=== PATIENT | male | born 1960 | race Caucasian/White ===

== ENCOUNTER 2018-12-09 05:14 | Observation (INO) | payer OTHER ==
[2018-12-09] MEDS ORDERED: Aspirin 81 mg CHEW TAB* 81 MG TAB.CHEW PO ONE (05:41)
[2018-12-09] MEDS ORDERED: Morphine VIAL* 10 MG/ML 1 ML VIAL IV ONE (05:41)
[2018-12-09] MEDS ORDERED: Nitroglycerin TAB 0.4 MG* 0.4 MG TAB SL ONE ×2 (05:42→11:30)
--- NOTE | 2018-12-09 05:42 | ED ---
HPI Chest Pain - HPI Summary HPI Summary: A 58 y/o M presents to ED with c/o constant L-anterior CP onset three days ago from this date. He says the pain has worsened over the course of the weekend. When he woke up this morning to use the bathroom, he got up and walked to the bathroom and felt the pain was sharper. He denies n/v, SOB, dizziness/ lightheadedness and diaphoresis. Aggravating factors: belching. He has had similar CP previously, he's unsure how long ago but at most a month, which lasted 30 minutes but spontaneously resolved. He is a non-smoker. Denies cardiac hx, but he does have polycystic liver disease. Patient has not eaten this morning and has not taken any medication for the pain. - History of Current Complaint Chief Complaint: EDChestPainROMI Hx Obtained From: Patient Onset/Duration: Started Days Ago, Atraumatic, Still Present Timing: Constant Initial Severity: Mild Current Severity: Moderate Pain Intensity: 5 Pain Scale Used: 0-10 Numeric Chest Pain Location: Left Anterior Character: Sharp/Stabbing Associated Signs and Symptoms: Negative: Dizziness, Shortness of Breath, Lightheadedness, Nausea, Vomiting, Other: - neg: diaphoresis - Allergy/Home Medications Allergies/Adverse Reactions: Allergies Allergy/AdvReac Type Severity Reaction Status Date / Time No Known Allergies Allergy Verified 12/09/18 05:20 Home Medications: Home Medications NK [No Home Medications Reported] 12/09/18 [History Confirmed 12/09/18] PMH/Surg Hx/FS Hx/Imm Hx Previously Healthy: No Endocrine/Hematology History: Denies: Hx Diabetes Cardiovascular History: Denies: Hx Hypertension, Hx Pacemaker/ICD GI History: Reports: Other GI Disorders - POLYCYSTIC LIVER History: Denies: Hx Renal Disease Sensory History: Denies: Hx Hearing Aid Psychiatric History: Denies: Hx Panic Disorder - Surgical History Surgery Procedure, Year, and Place: APPENDECTOMY Infectious Disease History: No Infectious Disease History: Denies: Traveled Outside the [place] in Last 30 Days - Family History Known Family History: Positive: Other - [place] - Social History Occupation: Employed Full-time Lives: Alone Alcohol Use: Occasionally Hx Substance Use: No Substance Use Type: Reports: None Hx Tobacco Use: No Smoking Status (MU): Never Smoked Tobacco Review of Systems Negative: Skin Diaphoresis Positive: Chest Pain Negative: Shortness Of Breath Negative: Vomiting, Nausea Neurological: Other - neg: dizziness, lightheadedness All Other Systems Reviewed And Are Negative: Yes Physical Exam - Summary Physical Exam Summary: Appearance: Well-appearing, Well-nourished, lying in bed comfortably Skin: Warm, dry, no obvious rash Eyes: sclera anicteric, no conjunctival pallor ENT: mucous membranes moist, pharynx appears normal Neck: Supple, nontender Respiratory: Clear to auscultation, no signs of respiratory distress Cardiovascular: Normal S1, S2. No murmurs. Normal distal pulses in tibial and radial bilaterally. Abdomen: Soft, nontender, normal active bowel sounds present Musculoskeletal: Normal, Strength/ROM Intact Neurological: A&Ox3, awake and alert, mentation is normal, speech is fluent and appropriate Psychiatric: affect is normal, does not appear anxious or depressed Triage Information Reviewed: Yes Vital Signs On Initial Exam: Initial Vitals Temp Pulse Resp BP Pulse Ox 97.9 F 60 16 132/61 99 12/09/18 05:18 12/09/18 05:18 12/09/18 05:18 12/09/18 05:18 12/09/18 05:18 Vital Signs Reviewed: Yes Diagnostics - Vital Signs Vital Signs Temp Pulse Resp BP Pulse Ox 12/09/18 05:18 97.9 F 60 16 132/61 99 - Laboratory Result Diagrams: 12/09/18 05:49 12/09/18 05:49 Lab Statement: Any lab studies that have been ordered have been reviewed, and results considered in the medical decision making process. - Radiology CXR Radiology Interpretation Completed By: ED Physician Summary of Radiographic Findings: No acute process. - EKG 0528 Cardiac Rate: Bradycardia - 53 bpm EKG Rhythm: Sinus Bradycardia Summary of EKG Findings: ST elevation vs early repolarization in anterior leads Chest Pain Course/Dx - Course Course Of Treatment: Pt is a 58 y/o M presenting with constant L-anterior CP onset three days ago from this date. He says the pain has worsened over the course of the weekend. When he woke up this morning to use the bathroom, he got up and walked to the bathroom and felt the pain was sharper. He denies n/v, SOB , dizziness/lightheadedness and diaphoresis. Aggravating factors: belching. He has had similar CP previously, he's unsure how long ago but at most a month, which lasted 30 minutes but spontaneously resolved. He is a non-smoker. Denies cardiac hx, but he does have polycystic liver disease. Patient has not eaten this morning and has not taken any medication for the pain. Bloodwork is WNL. EKG shows sinus best at 53bpm with ST elevation vs. early repolarization in anterior leads. CXR shows no acute process. Patient will be signed out to Dr. Sanchez at shift changing pending trop and re-eval. - Provider Notifications Discussed Care Of Patient With: Neel Fofana - cardiology Time Discussed With Above Provider: 05:40 Instructed by Provider To: Other - Discussed pt's EKG. He will review and call back. Reading EKG as early repol. Discharge - Sign-Out/Discharge Documenting (check all that apply): Sign-Out Patient Signing out patient TO: Richard Sanchez - Discharge Plan Referrals: Zack Peña MD [Primary Care Provider] - - Attestation Statements Document Initiated by Scribe: Yes Documenting Scribe: Shu Dougherty Provider For Whom Scribe is Documenting (Include Credential): Dr. Raul Arthur MD Scribe Attestation: I, Shu Dougherty, scribed for Dr. Raul Arthur MD on 12/09/18 at 0650.
[2018-12-09 05:57] LABS: ABS Basophils 0 10^3/ul (0-0.2); ABS Eosinophils 0.2 10^3/ul (0-0.6); ABS Lymphocytes 1.1 10^3/ul (1.0-4.8); ABS Monocytes 0.5 10^3/ul (0-0.8); ABS Neutrophils 3.7 10^3/ul (1.5-7.7); ABS Nucleated RBC 0 10^3/ul; Eosinophil % 3.9 %; Hematocrit 41 % (42-52); Hemoglobin 13.9 g/dl (14.0-18.0); Lymphocyte % 19.5 %; Mean Corpuscular HGB Conc 34 g/dl (31-36); Mean Corpuscular Hemoglobin 31 pg (27-31); Mean Corpuscular Volume 91 fL (80-94); Mean Platelet Volume 7.5 fL (7.4-10.4); Nucleated Red Blood Cells % 0.1; Platelet Count 206 10^3/ul (150-450); Red Blood Count 4.47 10^6/ul (4.00-5.40); Red Cell Distribution Width 12 % (10.5-15); White Blood Count 5.5 10^3/ul (3.5-10.8)
[2018-12-09 06:18] LABS: Albumin 4.1 g/dL (3.2-5.2); Albumin/Globulin Ratio 1.6 (1-3); BUN/Creatinine Ratio 29.3 (8-20); Calcium 9.1 mg/dL (8.6-10.3); EGFR African American 129.9 (>60); EGFR Non-African American 107.3 (>60); Globulin 2.5 g/dL (2-4); Potassium 4.2 mmol/L (3.5-5.0); Total Bilirubin 0.6 mg/dL (0.2-1.0); Total Protein 6.6 g/dL (6.4-8.9)
--- NOTE | 2018-12-09 07:43 | ED ---
Progress - Progress Note Progress Note: Patient was signed out to Dr. Richard Sanchez via Dr. Raul Arthur, pending 2nd Troponin, upon shift change on 12/09/2018 at 0700. A 58 y/o male presents to the ED c/o constant chest pain. In the ED room, the patient has a pulse of 60 BPM, O2 saturation of 98%, respiratory rate of 17, and blood pressure of 105/76. According to the patient, he has constant steady chest pain he characterized as pressure over the weekend. He noted that he had intermittent sharp episodes. He denies any edema in legs. He stated that the pain has gone down due to the medications given in the ED, however, he is not sure if it was the Morphine, Aspirin, or NTG as they were all administered at the same time. He did have a slight headache from the medications, but that subsided. The patient's friend in the room stated that she could tell he was scared due to the pain he was experiencing. The patient stated that the pain was more intense last night when he woke up to go to the bathroom. He denies any PMHx of HBP, DM, or DC. FHx of DC (mother, about same age). VITAL SIGNS: Reviewed. GENERAL: Patient is a well-developed and nourished male who is lying comfortable in the stretcher. Patient is not in any acute respiratory distress. HEAD AND FACE: No signs of trauma. No ecchymosis, hematomas or skull depressions. No sinus tenderness. EYES: PERRLA, EOMI x 2, No injected conjunctiva, no nystagmus. EARS: Hearing grossly intact. Ear canals and tympanic membranes are within normal limits. MOUTH: Oropharynx within normal limits. NECK: Supple, trachea is midline, no adenopathy, no JVD, no carotid bruit, no c- spine tenderness, neck with full ROM. CHEST: Symmetric, no tenderness at palpation LUNGS: Clear to auscultation bilaterally. No wheezing or crackles. CVS: Regular rate and rhythm, S1 and S2 present, no murmurs or gallops appreciated. ABDOMEN: Soft, non-tender. No signs of distention. No rebound no guarding, and no masses palpated. Bowel sounds are normal. EXTREMITIES: FROM in all major joints, no edema, no cyanosis or clubbing. NEURO: Alert and oriented x 3. No acute neurological deficits. Speech is normal and follows commands. SKIN: Dry and warm - Results/Orders Results/Orders: EKG 0722 Sinus bradycardia at [address] elevation from V2 to V6 and less than 1 mm. Course/Dx - Course Course Of Treatment: Patient was signed out to Dr. Richard Sanchez via Dr. Raul Arthur, pending 2nd Troponin, upon shift change on 12/09/2018 at 0700. This patient was signed out from Dr. Arciniega. He reports that the patient is a 58- year-old male who came into the emergency department with chest pain. Troponin was negative. EKG shows some ST elevations and he ran the case with and Dr. Fofana and reports and that pain is secondary to pericarditis. Therefore he ordered an echo which is still pending. Course of blood work is still negative. I discussed case with Dr. Ugarte who agrees that the patient may have pericarditis and he recommends admission to the hospitalist on further workup and management. Once the echo was done and he will be admitted. The echocardiogram is completed. I discuss my physical exam, findings and test results with Dr. Hughes from the hospitalist services and he agrees to admit patient to his services. Patient is hemodynamically stable alert and oriented x 3. - Diagnoses Provider Diagnoses: Chest pain, Pericarditis - Provider Notifications Discussed Care Of Patient With: Frederick Hughes Time Discussed With Above Provider: 08:45 Instructed by Provider To: Other - Accepts patient for admission. Also discussed case with Dr. Porter who will read ECHO. Discharge - Sign-Out/Discharge Documenting (check all that apply): Patient Departure - ADMIT, Sign-Out Patient - MAURIZIO Signing out patient TO: rFederick Hughes Receiving patient FROM: Richard Sanchez - Discharge Plan Condition: Stable Disposition: ADMITTED TO [facility] - Billing Disposition and Condition Condition: STABLE Disposition: Admitted to [facility] - Attestation Statements Document Initiated by Scribe: Yes Documenting Scribe: Shimon Patterson Provider For Whom Naheed is Documenting (Include Credential): Richard Sanchez MD Scribe Attestation: Shimon Ortez, scribed for Richard Sanchez MD on 12/09/18 at 1841. Scribe Documentation Reviewed: Yes Provider Attestation: The documentation as recorded by the scribe, Shimon Patterson accurately reflects the service I personally performed and the decisions made by me, Richard Sanchez MD Status of Scribe Document: Viewed Attestations Scribe Attestation: Shimon Patterson User Type: Provider
[2018-12-09 09:18] LABS: C Reactive Protein 1.51 mg/L (<8.01)
[2018-12-09 10:48] LABS: Erythrocyte Sed Rate 5 mm/Hr (0-20)
[2018-12-09] MEDS ORDERED: Acetaminophen TAB* 325 MG PO PRN (11:25)
[2018-12-09] MEDS ORDERED: Ondansetron INJ* 2 MG/ML VIAL IV PRN (11:25)
[2018-12-09] MEDS ORDERED: Iohexol 350* (CONTRAST) 500 ML MDV IV ONE (12:00)
--- NOTE | 2018-12-09 12:58 | ECHO ---
Patient: TIMUR CONTEH [facility] Rec#: [id number] : 1960 Date: 12/09/2018 Age: 58y Height: 178 cm / 70.1 in Weight: 73 kg / 160.9 lbs Sex: M BSA: 1.9 Room#: 17 Admit Date#: 12/09/2018 Type: Inpatient Referring: Raul Arthur MD Reading: Mehul Ugarte MD Hoop Rolls Operator: Ana Lilia Ibarra ERIN CC: Zack Peña MD Transthoracic Echocardiogram Indication: CP BP: 114/69 HR: 55 Rhythm: Bradycardia Findings History: Nonsmoker,CP,polycystic liver disease. Technical Comments: The study quality is good. Completed at 1119. Left Ventricle: The left ventricular chamber size is normal. Global left ventricular wall motion and contractility are within normal limits. There is normal left ventricular systolic function. The estimated ejection fraction is 55-60%. There is no consistent Doppler evidence of clinically significant diastolic dysfunction. Left Atrium: The left atrial chamber size is normal. Right Ventricle: The right ventricular cavity size is normal. The right ventricular global systolic function is normal. Right Atrium: The right atrial cavity size is normal. Aortic Valve: The aortic valve is trileaflet. There is no evidence of aortic regurgitation. There is no evidence of aortic stenosis. Mitral Valve: The mitral valve leaflets are mildly thickened. There is a trace of mitral regurgitation. There is no evidence of mitral stenosis. Tricuspid Valve: The tricuspid valve leaflets are normal. There is trace tricuspid regurgitation. Unable to estimate the right ventricular systolic pressure. There is no tricuspid stenosis. Pulmonic Valve: The pulmonic valve appears normal. There is no evidence of pulmonic regurgitation. There is no pulmonic stenosis. Pericardium: The pericardium appears normal. Aorta: There is no dilatation of the ascending aorta. There is no dilatation of the aortic arch. There is no dilation of the aortic root. Pulmonary Artery: The main pulmonary artery appears normal. Venous: The venous system is not well visualized. Summary: There was not any prior study for comparison. Conclusions Global left ventricular wall motion and contractility are within normal limits. There is normal left ventricular systolic function. The estimated ejection fraction is 55-60%. The right ventricular global systolic function is normal. There is no evidence of aortic stenosis. There is a trace of mitral regurgitation. There is trace tricuspid regurgitation. Unable to estimate the right ventricular systolic pressure. The pericardium appears normal. Measurements Name Value Normal Range RVIDd (AP) 2D 3.2 cm (0.9 - 2.6) RVDdMajor (2D) 3.3 cm (2.2 - 4.4) RAd ISD 4CH 4.9 cm (3.4 - 4.9) RA (A4C)W 3.4 cm (2.9 - 4.6) IVSd (2D) 0.7 cm (0.6 - 1) LVPWd (2D) 0.9 cm (0.6 - 1) LVIDd (2D) 4.1 cm (3.6 - 5.4) LVIDs (2D) 2.6 cm - LV FS (2D) 36 % (25 - 45) Aortic Annulus 2 cm (1.4 - 2.6) Ao root diameter (2D) 3.2 cm (2.1 - 3.5) Ascending Ao 2.7 cm (2.1 - 3.4) Aortic arch 2.2 cm (1.8 - 3.4) LA dimension (AP) 2D 3.3 cm (2.3 - 3.8) LAd ISD 4CH 4.4 cm (2.9 - 5.3) LA ISD 4CH W 3.8 cm (2.5 - 4.5) Name Value Normal Range LA ESV SP 2CH (A/L) 31 ml - Name Value Normal Range MV E-wave Vmax 0.7 m/sec - MV deceleration time 214.8 msec - MV A-wave Vmax 0.64 m/sec - MV E:A ratio 1.11 ratio - LV septal e' Vmax 0.08 m/sec - LV lateral e' Vmax 0.1 m/sec - LV E:e' septal ratio 8.75 ratio - LV E:e' lateral ratio 7 ratio - Name Value Normal Range AV Vmax 1 m/sec - AV VTI 22.8 cm - AV peak gradient 4 mmHg - AV mean gradient 2 mmHg - LVOT Vmax 0.9 m/sec - LVOT VTI 21 cm - LVOT peak gradient 3 mmHg - LVOT mean gradient 1 mmHg - Name Value Normal Range PV Vmax 0.6 m/sec - PV peak gradient 1 mmHg -
--- NOTE | 2018-12-09 13:59 | HP ---
CC: Dr. Peña * ADMISSION HISTORY AND PHYSICAL: DATE OF ADMISSION: 12/09/18 PRIMARY CARE PROVIDER: Dr. Peña. HEALTHCARE PROXY: . CODE STATUS: Full. SOURCE OF INFORMATION: History obtained from interview with the patient and his . RELIABILITY: Very good. CHIEF COMPLAINT: Chest discomfort. HISTORY OF PRESENT ILLNESS: This is a 58-year-old man with past medical history of polycystic liver disease without abnormal liver function, who is quite active, been in his usual state of health until approximately 1 month prior had an episode of 30 seconds of chest discomfort while standing in his kitchen. It had totally abated until approximately 4 days prior to presentation , had a similar pain that was described as an ache that lasted for minutes. This happens several times throughout the day while working. 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 He noted that the work he was performing that it was very strenuous and he was able to continue working. Three days prior to presentation, he continued to have aching, chest discomfort that was on and off lasting for several minutes, happened between 5 and 10 times during that day. In one instance, he got on the elliptical to exercise and noted that the pain improved. Over the last 2 days prior to presentation, he went for a hike outdoors in the snow with his . The pain had continued on and off in a similar fashion lasting for several minutes, although he noted that walking uphill did not aggravate his chest pain or chest discomfort, again described as aching, located in the left lower sternal border. Additionally, not associated with nausea, vomiting, lightheadedness, palpitations, loss of consciousness, or near loss of consciousness or diaphoresis. The day prior to presentation, he worked for about 5 to 6 hours and the pain again was present more consistently, nothing making it better or worse. The night prior to presentation, pain became more severe whereas previously it was 2 to 3 out of 10 , it is up to 4/10. Several "jolts" where it was more severe lasting for seconds, getting up to the bathroom. Again it was not associated with other signs or symptoms including absence of shortness of breath or pleurisy. He did notice it was worse with belching, but not with sneezing and no lightheadedness , nausea, or vomiting. He denies any recent fevers, chills or night sweats, diarrhea, or constipation. Of note, his most recent travel was [place] on . He drove to [place] and back several days later. Of 10 hour of trip, he and his stopped 2 times for gas; they did stretch at that time. He has had no lower extremity swelling or pain in his legs. He had contact with children over the but none recently. He has had absence of URI type symptoms including rhinorrhea, sore throat, cough. He presented to the emergency room today because the pain continued on and off, but it seems to more severe and more frequent. PAST MEDICAL HISTORY: Includes: 1. Polycystic liver disease with normal liver function. 2. Appendectomy. MEDICATIONS: Are all manh-rzi-dvuykkh includin. [place]-3-6-9. 2. Lysine. 3. Chondroitin glucosamine. 4. Vitamin B3. 5. Multivitamin. 6. Magnesium 7. Tumeric. ALLERGIES: No known drug allergies. FAMILY HISTORY: Father with a suspected [place] in his 50s. No history of CVAs. SOCIAL HISTORY: No history of tobacco; works; exercises daily, walking as well as additionally 3 times weekly performing other activities. He has got one alcoholic drink per week. He works in construction, performing plumbing. REVIEW OF SYSTEMS: As per HPI, otherwise all other systems were negative. PHYSICAL EXAMINATION GENERAL: Sitting 40 degrees up in bed, interactive, pleasant, in no apparent distress. VITAL SIGNS: Seen by this author 112/75, heart rate 47, respiratory rate 16, he is 97% on room air, T-max is 97.9. HEENT: Oropharynx is clear. He has moist mucous membranes. Sclerae are anicteric. LUNGS: His lungs are clear to auscultation. He has no point tenderness over his precordium or elsewhere in his chest. HEART: He has a bradycardic rate with a regular rhythm. No murmurs, rubs, or gallops. ABDOMEN: Soft, nontender, nondistended. Positive bowel sounds. EXTREMITIES: Warm and well perfused without clubbing, cyanosis, or edema. NEUROLOGIC: He is alert and oriented x3. His cranial nerves II through XII are intact. He has no apparent anxiety, agitation, or depression. SKIN: He has no skin rashes. DIAGNOSTIC STUDIES/LAB DATA: Labs reviewed, notable for troponin-I 0.00 on 2 consecutive checks, CRP of 1.5, ESR of 5, hemoglobin of 13.9. Data reviewed, chest x-ray no active cardiopulmonary disease. EKGs performed on 04/08/18 and 06/02/18 with sinus bradycardia, ventricular rate of [address]-elevation versus J-point and V2 through V5 as well as aVL, P-R depression, V2, V3, V4, V5. ASSESSMENT AND PLAN: This is a 58-year-old man minimal past medical history except for polycystic liver disease presenting to the hospital with 4-day history of intermittent chest pain described as aching. 1. Chest pain: Atypical does not appear to be ischemic based on negative troponins and duration of events as well as improvement with vigorous exercise as well as hiking and working. His minimal risk factors except potentially father with early coronary artery disease, although, he is unsure whether his father actually had heart attack. EKG with diffused ST-elevations, although potentially J-point and VA depressions would suggest possibility of pericarditis. A transthoracic echocardiogram has already been completed. However, absence of preceding viral syndrome as well as normal limit inflammatory markers including CRP and ESR would argue against an inflammatory condition at this point. In the setting of travel 1 month prior with minimal stretching, intermittent nature, I think it is prudent to rule out a pulmonary embolism. He does remain bradycardic arguing against pulmonary embolism; however, this does not completely rule it out. Admit OBV to the hospital for further evaluation on telemetry, additional troponins for a third check. Await transthoracic echo-cardiogram results and perform CTA. In addition check lower extremity Dopplers to rule out deep venous thrombosis. 2. Bradycardia, suspect in the setting of lifelong exercise. Continue to monitor on telemetry. Currently on no medications that would promote bradycardia. 3. DVT prophylaxis is low risk. MAURILIO stockings, ambulate ad-jayne. TIME SPENT: Greater than 60 minutes were spent on the admission of this patient , greater than 60 minutes was spent [id number] with the patient. [id number]/[facility] #: [id number] THIAGO
[2018-12-10 15:23] VITALS: BP 123/76
== END 2018-12-10 16:00 | disposition home or self-care (01) ==
LOC: ED 05:14 → MEDTELE 11:25
PROVIDERS: ADMIT Internal Medicine; ATTEND Internal Medicine
DX: R07.9 Chest pain, unspecified (principal); I31.9 Disease of pericardium, unspecified; Q44.6 Cystic disease of liver
CPT/HCPCS: 36415; 71045; 71275; 78452; 80053; 84484; 85025; 85379; 85652; 86140; 93005; 93017; 93306; 96374; 99284; A9270-GY; A9502; G0378; J2270; Q9967